=== PATIENT | female | born 1980 | race Caucasian/White ===

== ENCOUNTER 2024-02-01 17:30 | Emergency (ER) | payer OTHER, SELFPAY ==
[2024-02-01 17:38] VITALS: BP 153/76; PULSE 87; RESP 20; TEMP 36.3; O2SAT 100
--- NOTE | 2024-02-01 18:03 | ED.BURNSMOKE ---
HPI - Burn/Smoke Inhalation General Chief complaint: Burn/Smoke Inhalation Stated complaint: burn on left arm Time Seen by Provider: 02/01/24 18:03 Source: patient, RN notes reviewed and old records reviewed Mode of arrival: ambulatory Limitations: no limitations History of Present Illness HPI Narrative: 43-year-old female to [facility] with complaint of burn to left lower arm. Patient states that after removing a TV dinner from the microwave she accidentally dropped it onto her left forearm. Patient states that she quickly grabbed a paper towel to wipe it off and noticed skin coming off as she wiped. Patient reports running under cold water prior to arrival. Patient denies numbness, tingling, decreased ROM. patient resting uncomfortably in exam room in no acute distress. Related Data Allergies Allergy/AdvReac Type Severity Reaction Status Date / Time No Known Allergies Allergy Verified 02/01/24 17:54 Review of Systems Review of Systems: All systems reviewed & are unremarkable except as noted in HPI and below Constitutional: Constitutional: Reports no additional constitutional complaints Eyes: Eyes: Reports no additional eye complaints ENT: Reports system reviewed and no additional complaints, except as documented Cardiovascular: Cardiovascular: Reports no additional cardiovascular complaints, Denies chest pain and Denies dyspnea Respiratory: Respiratory: Reports no additional respiratory complaints, Denies cough and Denies dyspnea Musculoskeletal: Musculoskeletal: Reports no additional musculoskeletal complaints Integumentary/Breasts: Skin/Breast: Reports as per HPI, Reports swelling, Reports erythema, Reports skin pain and Reports wounds Neurologic: Reports system reviewed and no additional complaints, except as documented Psychiatric: Psychiatric: Reports no additional psychiatric complaints PMFSH Comments At the time of my signature, I reviewed and agree with the nursing past medical, surgical, social, and family history. There is no relevant family history pertinent to the patient complaint. Exam Const: General: cooperative, healthy appearing, no acute distress, alert, uncomfortable and well nourished Nutritional Appearance: well nourished Orientation/consciousness: patient oriented x3 Limitations: no limitations HENMT: Head: normal to inspection Ears: external ears normal Face/Nose/Sinus: Normal external nose present, Normal nares present, normal facial exam, No erythema and No edema Face and sinus: normal facial exam, no erythema and no edema Mouth: Yes Normal oral and palatal mucosa present Eyes: General: appearance normal, both eyes and all related structures Neck: Neck: normal visual inspection, full ROM and no meningeal signs Chest: Chest palpation & inspection: normal inspection of the chest Resp: Effort & Inspection: normal respiratory effort and able to speak in complete sentences Cardio: Jugular venous distension: no JVD Rate: regular rate Back/Spine/Pelvis: Cervical Spine: cervical ROM normal Skin: General skin exam: erythema and wounds noted Wounds: wounds noted left palmar forearm Other: Second degree burn noted to left palmar forearm, multiple blisters present. Neuro: General: patient oriented x3, gait normal, moves all extremities and no meningeal signs Speech: normal speech Gait exam (Neuro): Normal gait present Extrem: General: normal to inspection, full ROM and capillary refill normal Psych: Appearance: grossly normal and well kempt Course Course Emergency Course: Some parts of this dictation were generated by voice recognition software and may contain typographical and/or grammatical inaccuracies. Level of Care: Express Care Visit Vital Signs Vital signs: Vital Signs Temperature 36.3 C L 02/01/24 17:38 Pulse Rate 87 02/01/24 17:38 Respiratory Rate 20 02/01/24 17:38 Blood Pressure 153/76 H 02/01/24 17:38 Pulse Oximetry 100 02/01/24 17:38 Oxygen Delivery Room Air 02/01/24 17:38 Temperature 36.3 C L 02/01/24 17:38 Pulse Rate 87 02/01/24 17:38 Respiratory Rate 20 02/01/24 17:38 Blood Pressure 153/76 H 02/01/24 17:38 Pulse Oximetry 100 02/01/24 17:38 Oxygen Delivery Room Air 02/01/24 17:38 reviewed MDM - Burn/Smoke Inhalation MDM Narrative Medical decision making narrative: 43-year-old female to [facility] with complaint of burn to left lower arm. Patient states that after removing a TV dinner from the microwave she accidentally dropped it onto her left forearm. Patient states that she quickly grabbed a paper towel to wipe it off and noticed skin coming off as she wiped. Patient reports running under cold water prior to repair. Patient denies numbness, tingling, decreased ROM. patient resting uncomfortably in exam room in no acute distress. on exam, 2nd degree burn to left palmar forearm. Large blisters present. Sterile saline-soaked gauze initially applied to assist with pain relief. wound dressed RN prior to discharge. Patient is sitting uncomfortably in exam room nontoxic in appearance. Patient appropriate for outpatient treatment and follow-up. Discharge instructions reviewed with patient, as well as provided in writing per nursing staff. The instructions also include specific and strict return/GO TO THE ER as well as f/u information. All questions have been answered, and the patient deny any further questions with discharge and discharge plan. Some parts of this dictation were generated by voice recognition software and may contain typographical and/or grammatical inaccuracies. Differential Diagnosis Differential diagnosis: Likely smoke inhalation, electrical burn, toxic effect of carbon monoxide and sunburn Discharge Plan Discharge Clinical Impression: Partial thickness burn of left forearm Patient Disposition: Home, Self-Care Condition: Stable Instructions: Superficial Burn (ED) Additional Instructions: Please review the attached instructions regarding superficial burn and implement recommendations as tolerated please use provided information to establish a primary care provider immediately for follow-up appointment for new or worsening symptoms go directly to the emergency department If you are having a hard time finding a physician please call our [facility] group liaison at [phone]. Prescriptions: New silver sulfadiazine [Silvadene] 1 % cream 1 applic topical DAILY Qty: 400 0RF Rx Instructions: apply a 1.5 mm thickness cephalexin 500 mg capsule 500 mg PO Q12H Qty: 14 0RF Follow-up/Referrals: PHYSICIAN,CAPTAIN WAITER/WAITRESS [Primary Care Provider] - Stand Alone Forms: Work/School Release IP
[2024-02-01] MEDS: SILVER SULFADIAZINE 1% CR 50 GM JAR (*BKC) 1 APPLIC TOPICAL (18:38)
[2024-02-01] MEDS: TETANUS,DIPHTHERIA,AC PERTUSSIS ADULT (0.5 ML) BOOSTRIX IM (18:38)
== END 2024-02-01 18:58 | disposition home or self-care (01) ==
PROVIDERS: Emergency Provider Nurse Practitioner Family
DX: T22.212A Burn of second degree of left forearm, initial encounter (principal); X10.1XXA Contact with hot food, initial encounter; Z23 Encounter for immunization; I34.1 Nonrheumatic mitral (valve) prolapse
CPT/HCPCS: 16020; 90471; 90715; 99213; A9270; G0463